=== PATIENT | male | born 1960 | race Caucasian/White ===

== ENCOUNTER 2025-11-02 18:06 | Inpatient (IN) | payer OTHER, MEDICARE, MEDICAID ==
[~2025-11-02] VITALS: Ht 167.6 cm; Wt 87.0 kg
--- NOTE | 2025-11-02 19:01 | Physician Documentation ---
History of Present Illness ~ Chief Complaint: Abdominal Pain Stated Complaint: GALLSTONES/ TRANSFER Time Seen by MD: 19:00 Source: EMS, EMS notes reviewed Mode of Arrival: EMS Exam Limitations: clinical condition HPI 65 year old male presents to the ED via EMS transferred from [facility]. At our facility patient is unable to provide history stating tat he is "kind of confused right now" and that he "was having abdominal pain this morning". Per records from [facility] where he was also noted to be a difficult historian/easily distracted/tangential he presented due to 3 days of progressively worsening abdominal pain that is sharp in nature and associated with some nausea and vomiting. Abdominal ultrasound in the ED indicated acute cholecystitis. Medication Reconciliation Allergies: Coded Allergies: codeine (Unverified Allergy, Unknown, 11/02/25) Scheduled Esomeprazole Magnesium (Nexium 24Hr), 1 CAP PO DAILY, (Reported) Gabapentin (Gabapentin), 9 CAP PO BID, (Reported) Scheduled PRN Ibuprofen (Advil), 800 MG PO PRN PRN for pain, (Reported) Miscellaneous Medications Tadalafil (Tadalafil), (Reported) Past Medical History Unable to obtain complete PMH: altered mental status Review of Systems ROS Unable to obtain secondary to patients current mental status. Physical Exam Vital Signs: RN Vital Signs have been reviewed: Yes, Temperature: 99.3, Source: Oral, Heart Rate: 104, Respiratory Rate: 17, BP: 144/81, Pulse Oximetry: 98, Weight: 87.450 Oxygen Flow Rate: 0 Pulse Oximetry Reflects: adequate oxygenation Physical Exam General: Patient is awake and oriented x1. Tangential. Head: Normocephalic and atraumatic. Eyes: Conjunctival normal. EOMI. PERRL. ENT: Mucous membranes moist. Neck: Supple, trachea is midline. Chest: Clear to auscultation bilaterally without rales, rhonchi, or wheezes. There is no accessory muscle use or retractions. Cardiac: RRR without murmurs, gallops, or rubs. Abd: RUQ tenderness to palpation. Otherwise: Soft, nondistended, with normoactive bowel sounds. No guarding, rebound, or rigidity. Extremities: Normal strength. Normal range of motion. No deformities or edema. Left BKA and right AKA. Back: No midline spinal or CVA tenderness. Skin: Warm and dry with no significant rash appreciated. Neuro: Cranial nerves II-XII grossly intact. Progress Progress Note 1960: Confirmed ultrasound showed enlarged common bile duct. Bilirubin is uptrending since arriving at this facility 1.2 --> 1.5. Arranging for transfer as we do not have ERCP capabilities. 0732: The case was discussed with the hospitalist at this time who was informed on the patient and kindly agreed to admission. Results/Orders Results/Orders Completed Orders - GLENN BRIGGS MD Cbc/Diff (11/02/25 18:20) BMP (11/02/25 18:20) Lipase (11/02/25 18:20) CMP (11/02/25 18:20) Ua W/Microscopic, Cult If Ind (11/02/25 18:57) Acetaminophen 1,000mg/100ml Iv (Ofirmev (11/02/25 23:25) Electrocardiogram (11/02/25 23:25) Ondansetron Inj. (Zofran 4mg/2ml Vial) (11/02/25 23:25) Piperacillin/Tazo 3.375gm/50ml (Zosyn 3. (11/03/25 00:05) Piperacillin/Tazo 3.375gm/50ml (Zosyn 3. (11/03/25 04:00) Ua W/Microscopic, Cult If Ind (11/03/25 07:48) Vital Signs 11/02/25 11/02/25 11/02/25 11/02/25 18:13 19:06 19:15 20:38 Temp 99.3 99.3 99.3 Pulse 104 96 104 Resp 17 27 24 B/P (MAP) 144/81 100/61 (74) 132/80 (97) Pulse Ox 98 92 92 O2 Flow Rate 0 0 0 11/02/25 11/03/25 11/03/25 11/03/25 23:19 03:25 06:03 07:44 Temp 103.4 101.0 98.7 Pulse 128 83 70 68 Resp 35 14 16 18 B/P (MAP) 94/64 (74) 98/63 (75) 101/74 (83) 101/62 (75) Pulse Ox 95 92 92 O2 Flow Rate 0 Laboratory Tests Test 11/02/25 18:57 11/02/25 19:33 11/03/25 07:48 Urine Specimen Description Cln catch midstream Voided Urine Color Yellow Yellow Urine Clarity Clear Clear Urine pH 5.5 5.5 Urine Specific [place] 1.025 1.025 Urine Protein Trace Trace Urine Glucose (UA) Negative Negative Urine Ketones Negative Negative Urine Occult Blood Negative Trace-intact Urine Nitrite Negative Negative Urine Bilirubin Negative Negative Urine Urobilinogen 0.2 0.2 Urine Leukocyte Esterase Negative Negative Urine RBC None seen 3-10 Urine WBC 0-4 0-4 Urine Squamous Epithelial Cells None seen Few Urine Bacteria 1+ 1+ Urine Culture Indicated Not ind Not ind Volume Urine Centrifuged 10 ml 10 ml Urine Comment White Blood Count 13.8 H Red Blood Count 4.28 L Hemoglobin 13.1 L Hematocrit 38.2 L Mean Corpuscular Volume 89.2 Mean Corpuscular Hemoglobin 30.6 Mean Corpuscular Hemoglobin Concent 34.3 Red Cell Distribution Width 14.2 Platelet Count 209 Mean Platelet Volume 8.1 Neutrophils (%) (Auto) 80.2 H Lymphocytes (%) (Auto) 5.0 L Monocytes (%) (Auto) 13.1 H Eosinophils (%) (Auto) 1.1 Basophils (%) (Auto) 0.6 Neutrophils # (Auto) 11.0 H Lymphocytes # (Auto) 0.7 L Monocytes # (Auto) 1.8 H Eosinophils # (Auto) 0.1 Basophils # (Auto) 0.1 CBC Comment Sodium Level 143 Potassium Level 4.1 Chloride Level 110 H Carbon Dioxide Level 24.7 Anion Gap 8 Blood Urea Nitrogen 24 H Creatinine 0.99 Estimated GFR/1.73 m2 75 BUN/Creatinine Ratio 24.2 H Glucose Level 107 H Calcium Level 8.5 Total Bilirubin 1.5 H Aspartate Amino Transf (AST/SGOT) 38 H Alanine Aminotransferase (ALT/SGPT) 38 Alkaline Phosphatase 72 Total Protein 7.3 Albumin 3.1 L Globulin 4.2 Albumin/Globulin Ratio 0.7 L Lipase 20 Chemistry Comments Urine Amorphous Urates 1+ EKG/XRAY/CT/US/VASC/MRI EKG : Intepreting Monitor?: No Additional Comment 0181: Sinus tachycardia rate of 123, normal axis, no ST changes. Medical Decision Making Additional information obtaine: other Findings Patient presents to the emergency room with cholecystitis. Antibiotics already initiated that has transfer. Dr. Camarena has spoken to surgeon who kindly agrees to admit despite enlarged common bile duct. Diff Dx GI Bleed:Consideration: Include: AE fistula, Angiodysplasia, Bleeding diathesis, Blood loss anemia, Carcinoma, Diverticulosis, Diverticulitis, Esophageal varicies, Esophagitis, Gastritis, Gastroenteritis, Inflammatory BD, Rosana-Dillon syndrome, Meckel's diverticulum, PUD, Other Diff Dx Pain:Considerations: Include: AAA, Angina/AK, Aortic dissection, Sergei endicitis, Bowel obstruction, Cholangitis, Cholecystitis, Cholelithasis, Constipation, Diverticular disease, Esophageal rupture, Esophagitis, Gastritis, Gastroenteritis, GI hemorrhage, Hepatitis, Hernia, Inflammatory BD, Ischemic bowel, Mass, Pancreatitis, Porphyria, PUD, Testicular torsion, Trauma, intraabdominal, Urinary obstruction, Urinary tract infection, Urolithiasis, Other Diff Dx N/V/D:Considerations: Include: Appendicitis, Bowel obstruction, Dehydration, DKA, Diarrhea - bacterial, Diarrhea - parasitic, Diarrhea - viral, Diverticulitis, Diverticulosis, Drug toxicity, Electrolyte imbalance, Food poisoning, Gastroenteritis, GE reflux, GI bleed, Hepatitis, Hernia, Hypovolemia, Hypotension, Inflammatory BD, Impaction, Malnutrition, Pancreatitis, PUD, Renal failure, Urinary obstruction, UTI, Urolithiasis, Other Diff Dx Rectal:Considerations: Include: Fissure, Fistula, Foreign body, Impaction, Perirectal abscess, Prostatitis, Rectal prolapse, Subcutaneous abscess, Thrombosed hemorrhoid, Ulcer, UTI, Other Departure Time of Disposition: 07:43 Disposition: 09 ADMITTED INPATIENT Admitted to Inpatient Unit: yes, to hospitalist Impression: Primary Impression: Acute cholecystitis Referrals: NO PRIMARY CARE PROVIDER (PCP) Signature Scribe Signature: Scribed for Glenn Briggs MD by Alanna Dominguez . 11/02/25 19:26 Scribed for Miguel Garcia MD by Rosy Dominguez . 11/03/25 07:43 (hospitalist note) Attestation: The note accurately reflects work and decisions made by me.Glenn Briggs MD 11/03/25 21:12 GLENN BRIGGS MD Nov 02, 2025 19:01 ALANNA PATEL Nov 02, 2025 19:24 ROSY JJ Nov 03, 2025 07:43
[2025-11-02 19:40] LABS: LEUKOCYTE ESTERASE ,URINE NEGATIVE (Neg); NITRITES, URINE NEGATIVE (Neg); OCCULT BLOOD,URINE NEGATIVE (Neg)
[2025-11-02 19:42] LABS: UA COLLECTION TYPE CLN CATCH MIDSTREAM
[2025-11-02 19:45] LABS: MEAN PLATELET VOLUME 8.1 FL (7.4-10.4); RED CELL DISTRIBUTION WIDTH 14.2 % (11.5-14.5)
[2025-11-02 19:54] LABS: SQUAMOUS EPITHELIAL CELL,UR NONE SEEN /LPF (FEW)
[2025-11-02 19:55] LABS: CREATININE 0.99 MG/DL (0.60-1.10); TOTAL CARBON DIOXIDE 24.7 MMOL/L (24-32); eCRCL 65 ML/MIN; eGFR 75 ML/MIN
[2025-11-02] MEDS ORDERED: piperacillin/tazo 4.5gm/100ml 100 ML IV SCH (23:30)
--- NOTE | 2025-11-02 23:32 | ELECTROCARDIOGRAPH REPORT ---
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 Isauro Jiménez Measurements Intervals [place] Rate: 123 P: 62 GA: 166 QRS: 46 QRSD: 96 T: 49 QT: 321 QTc: 460 Interpretive Statements Sinus tachycardia Probable LVH with secondary repol abnrm Electronically Signed On 11-04-2025 21:14:[address] Isauro Jiménez Please click the below link to view image of tracing.
[2025-11-02] MEDS: acetaminophen 1,000mg/100ml IV 100 ML IV ONE (23:58)
[2025-11-03] VITALS (41 sets, daily range): BP systolic 91–183; BP diastolic 46–91; PULSE 62–87; RESP 14–29; TEMP 97.6–98.6; O2SAT 92–98
[2025-11-03] MEDS: ondansetron/PF 4mg/2ml inj IV ONE (00:25)
[2025-11-03] MEDS: piperacillin/tazo 3.375gm/50ml 50 ML IV ONE (00:25)
[2025-11-03] MEDS: piperacillin/tazo 3.375gm/50ml 50 ML IV SCH (04:04)
--- NOTE | 2025-11-03 08:01 | HISTORY AND PHYSICAL ---
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 At our facility patient is unable to provide history stating tat he is "kind of confused right now" and that he "was having abdominal pain this morning". Per records from [facility] where he was also noted to be a difficult historian/easily distracted/tangential he presented due to 3 days of progressively worsening abdominal pain that is sharp in nature and associated with some nausea and vomiting. Abdominal ultrasound in the ED indicated acute cholecystitis. In emergency Department patient was evaluated by physician, and after consultation with the surgeon decision was made to admit patient for further evaluation and treatment including procedure cholecystectomy. Patient NPO on IV antibiotics. No additional complaint or concern. Allergies: Coded Allergies: codeine (Unverified Allergy, Unknown, 11/02/25) Active prescriptions Reconciled and reviewed Home Medications Pending Past Medical History Past Medical History As in HPI Past Surgical History Surgical History Comment As in HPI Past Social History Social History Comment Deny illicit drug abuse tobacco alcohol use live with the family good social support Health Maintenance Health Maintenance Noncontributory ROS ROS Constitutional : no fever , no chills, or weakness. No diaphoresis. Allergic/Immunologic, no lymphadenopathy, no hives, no skin eruptions. Eyes, no recent visual changes, no eye pain, no photophobia. Ears, nose, mouth, throat, no sore throat, no nosebleed, no ear pain. Cardiovascular, no palpitations, skipped beats, chest pain, no peripheral edema, Respiratory, no dyspnea, orthopnea, cough, hemoptysis, chest wall pain. Gastrointestinal, patient has abdominal pain, nausea, vomiting, constipation or diarrhea. : no dysuria, hematuria, pelvic pain, urethral d/c. Endocrine, no polyuria, polydipsia, recent unintentional weight gain or loss. Hematologic/Lymphatic, no petechiae, no enlarged lymph nodes, no bone pain. Integumentary, no rash, no skin lesions, Musculoskeletal, no muscle aches, or pain, no muscle cramps, no recent change in gait Neurological, no dizziness, no headache, no syncope, no paresthesia. Psychiatric, no delusions, visual hallucinations, or hearing hallucinations. ROS - in rest is as in HPI. Exam Vitals: Vital Signs Date Time Temp Pulse Resp B/P (MAP) Pulse Ox O2 Delivery O2 Flow Rate FiO2 11/03/25 07:44 68 18 101/62 (75) 11/03/25 06:03 98.7 92 11/03/25 03:25 0 Vital signs, stable ,afebrile. Pulse Oximetry reflects adequate oxygenation. BMI is 31, weight 87 kg General: well developed, well nourished. Awake , alert, and oriented x4, resting comfortably in the bed, in no acute distress . Skin: Warm, dry, no pallor, no rash or petechiae. HEENT: Atraumatic, normocephalic, EOMI, anicteric sclera B; pink conjunctiva; PERRLA, normal oropharynx, moist oral and nasal mucosa. Tympanic membrane , nose , throat clear. Neck: Trachea midline. Supple, full range of motion, no JVD, bruit , hepatojugular reflex , lymphadenopathy or masses, or other lesions Cardiac: Regular rhythm, regular rate no murmurs, rubs, or gallops. Normal S1 and S2, no S3 noticed. PMI is normal. Respiratory: Equal breath sounds bilaterally, no tachypnea; lungs clear to auscultation bilaterally, no wheezing ,rub or rales, or crackles. Chest wall is symmetric and without deformity. No signs of trauma. Chest wall is nontender. No signs of respiratory distress. Resonance is normal upon percussion bilaterally. Gastrointestinal: Abdomen symmetric, non-distended, soft, tender to palpation right upper quadrant, normal bowel sounds x4 quadrant, normoactive, no hepatosplenomegaly , no masses , no bruit, no flank pain bilaterally. No voluntary guarding, rebound, or rigidity. No tenderness to percussion. No pulsatile masses. Equal femoral pulses. Positive Saenz's sign, negative McBurney point tenderness. Back; no CVA tenderness bilaterally, no deformities. Neck and back are without deformity as well. No tenderness noted on palpation of the spinous processes. Spinous processes are midline. Cervical, thoracic, and lumbar paraspinal muscles are not tender and are without spasm. : normal external genitalia, without lesions, swelling, masses or tenderness. Musculoskeletal: Extremities, normal range of motion, non-tender, muscle strength 5/5 x 4. Negative Homans signs bilaterally on lower extremity. Distal pulses full symmetrical, no clubbing, cyanosis , edema. A right BKA and left AKA noticed. Neurological: Speech is clear, alert, and oriented x 4. No motor or sensory deficit, deep tendon reflexes normal, cerebellar intact. Cranial nerves II-XII intact. Psych: Alert and or appropriate, normal affect. Vascular: Good distal pulses, which are equal x4; capillary refill less than 2 seconds. Lymphatic, no lymphadenopathy. 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 IV analgesics Reconciled home medications DVT gastropathy prophylaxis addressed Sepsis Screening Reassessment Date: Nov 03, 2025 Date of Service: Nov 03, 2025 Billing Provider: CASSIE DARBY MD Common Visit Codes: 36088-TIWPUAW INP/OBS CARE (HIGH) Secondary Visit Codes: 67147-NUAPRQAD CARE PLAN 30 MINUTES CASSIE DARBY MD Nov 03, 2025 08:01
[2025-11-03] MEDS ORDERED: magnesium sulf-water 2g/50mL 50 ML IV PRN (08:05)
[2025-11-03] MEDS ORDERED: magnesium hydroxide 30ml (MOM) UD suspension PO PRN (08:05)
[2025-11-03] MEDS ORDERED: HYDROcodone/acetaminophen 5mg/325mg tablet PO PRN (08:05)
[2025-11-03] MEDS ORDERED: magnesium Cl slow-release 64mg tablet PO PRN (08:05)
[2025-11-03] MEDS ORDERED: potassium Cl 20 mEq SR tablet PO PRN ×2 (08:05)
[2025-11-03] MEDS ORDERED: ondansetron 4mg rapidly disintigrating tab PO PRN (08:05)
[2025-11-03] MEDS ORDERED: magnesium sulf-water 4G/100mL 100 ML IV PRN (08:05)
[2025-11-03] MEDS ORDERED: mag hydrox/Alum hydrox/simeth 30ml oral suspension PO PRN (08:05)
[2025-11-03] MEDS ORDERED: bisacodyl 10mg suppository rectal RC PRN (08:05)
[2025-11-03] MEDS ORDERED: potassium Cl 40MEQ/1/2NS 520ml 520 ML IV PRN (08:05)
[2025-11-03 08:14] LABS: LEUKOCYTE ESTERASE ,URINE NEGATIVE (Neg); NITRITES, URINE NEGATIVE (Neg); OCCULT BLOOD,URINE TRACE-INTACT (Neg)
[2025-11-03] MEDS ORDERED: ESOM20CA59 PO (08:20)
[2025-11-03] MEDS ORDERED: GABA-530 PO (08:20)
[2025-11-03] MEDS ORDERED: IBUP-24 PO (08:20)
[2025-11-03] MEDS ORDERED: [UNRECOGNIZED DRUG - CODE] (08:20)
[2025-11-03 08:28] LABS: UA COLLECTION TYPE VOIDED
[2025-11-03 08:29] LABS: AMORPHOUS URATES 1+; SQUAMOUS EPITHELIAL CELL,UR FEW /LPF (FEW)
[2025-11-03] MEDS: normal saline 1000ml 1,000 ML IV SCH (08:33)
[2025-11-03 08:58] LABS: PHOSPHORUS 5.6 MG/DL (2.3-4.5); PRO BRAIN NATRIURETIC PEPTIDE 6395.0 PG/ML (0-125)
--- NOTE | 2025-11-03 11:08 | PROGRESS NOTE ---
Progress Note ID Providers to CC ~ Progress Note Progress Note: PT SEEN AND EXAMINED-NEEDS SANDRA CASTRO-POSSIBLE OPEN-DISCUSSED PROCEDURE INCLUDING RISKS/BENEFITS/ALTERNATIVES SONIA COX MD Nov 03, 2025 11:08
[2025-11-03] MEDS ORDERED: BUPIVAcaine 2.5mg/ml inj 50ml vial (contains preservative) ONE (11:11)
[2025-11-03] MEDS ORDERED: desflurane 240ml liquid inh. IH ONE (11:15)
[2025-11-03] MEDS ORDERED: rocuronium 10mg/ml inj IV ONE (11:15)
[2025-11-03] MEDS ORDERED: fentaNYL/PF 50MCG/1 ML 2ML syringe ONE (11:20)
[2025-11-03] MEDS ORDERED: propofol inj 20 ML IV ONE (11:26)
[2025-11-03] MEDS ORDERED: dexamethasone sod phosphate 4mg/ml inj. ONE (11:28)
[2025-11-03] MEDS ORDERED: LIDOcaine 1%/PF 5ML 10 MG/ML VIAL ONE (11:28)
[2025-11-03] MEDS ORDERED: ePHEDrine 50MG/ML INJ. ONE (11:29)
[2025-11-03] MEDS ORDERED: ondansetron/PF 4mg/2ml inj ONE (11:29)
[2025-11-03] MEDS ORDERED: acetaminophen 1,000mg/100ml IV 100 ML IV ONE (11:35)
[2025-11-03] MEDS ORDERED: fentaNYL/PF 50MCG/1 ML 2ML syringe IV PRN (11:45)
[2025-11-03] MEDS ORDERED: hydrALAZINE 20mg/ml inj. IV PRN (11:45)
[2025-11-03] MEDS: ringers solution, lacted 1,000 ML IV SCH (11:45)
[2025-11-03] MEDS ORDERED: enalaprilat 1.25mg/ml 2ml vial IV PRN (11:45)
[2025-11-03] MEDS ORDERED: HYDROmorphone/PF 0.2 MG/ML SYRINGE IV PRN ×2 (11:45)
[2025-11-03] MEDS ORDERED: glycopyrrolate 0.2mg/ml inj ONE (11:54)
--- NOTE | 2025-11-03 13:29 | OPERATIVE REPORT ---
Operative Report Providers to CC ~ Date of Procedure: Nov 03, 2025 Pre-Operative Diagnosis: Cholecystitis Post-Operative Diagnosis SAME as PRE-Op Procedure Performed david villagran Surgeon: ed yepez Anesthesiologist: Sinan Pimentel Type of Anesthesia: General Findings: severe cholecystitis Estimated Blood Loss: 300 ml Specimen Removed: SONIA Spencer MD Nov 03, 2025 13:29
[2025-11-03] MEDS ORDERED: PCA WASTE DOCUMENTATION 1 MG ML MC SCH (13:30)
[2025-11-03] MEDS: fentaNYL/PF 50MCG/1 ML 2ML syringe IV PRN (13:31)
[2025-11-03] MEDS: HYDROmorphone inj. 0.5 MG/0.5 ML DISP.SYRIN IV ONE (13:40)
[2025-11-03] MEDS: HYDROmorphone inj. 0.5 MG/0.5 ML DISP.SYRIN IV PRN ×2 (13:56→13:58)
[2025-11-03] MEDS ORDERED: HYDROmorphone inj. 0.5 MG/0.5 ML DISP.SYRIN IV PRN (14:02)
[2025-11-03 14:03] LABS: MEAN PLATELET VOLUME 8.3 FL (7.4-10.4); RED CELL DISTRIBUTION WIDTH 14.7 % (11.5-14.5)
[2025-11-03] MEDS: ondansetron/PF 4mg/2ml inj IV PRN ×2 (14:16→20:54)
--- NOTE | 2025-11-03 15:15 | ELECTROCARDIOGRAPH REPORT ---
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 TONY Hays Measurements Intervals [place] Rate: 80 P: 40 [place]: 179 QRS: 20 QRSD: 103 T: 36 QT: 431 QTc: 498 Interpretive Statements Sinus rhythm Probable left ventricular hypertrophy Borderline prolonged QT interval Electronically Signed On 11-04-2025 13:17:[address] TONY Hays Please click the below link to view image of tracing.
[2025-11-03] MEDS ORDERED: HYDROmorph/NS 0.2 mg/ml PCA 100 ML IV SCH (15:25)
[2025-11-03] MEDS: nitroGLYCERIN-Tridil 50MG/D5W 250 ML IV SCH (16:07)
[2025-11-03] MEDS: HYDROmorph/NS 0.2 mg/ml PCA 100 ML IV SCH (16:42)
[2025-11-03] MEDS: acetaminophen 650mg rectal suppository RC PRN (16:43)
[2025-11-03] MEDS: aspirin 300mg supp.rect RC ONE (16:46)
[2025-11-03] MEDS: K and/or MAG REPLACEMENT MC SCH (20:00)
[2025-11-03 20:14] LABS: APTT 32 SECONDS (22-32); INR 1.1 INR
[2025-11-03] MEDS: docusate sod 100mg capsule PO SCH (20:50)
[2025-11-03] MEDS: HYDROcodone/acetaminophen 10/325mg tab PO PRN (20:54)
[2025-11-03] MEDS: piperacillin/tazo 4.5gm/100ml 100 ML IV SCH (21:21)
[2025-11-04] VITALS (13 sets, daily range): BP systolic 111–140; BP diastolic 72–92; PULSE 66–91; RESP 10–28; TEMP 96.8–98.2; O2SAT 88–97
--- NOTE | 2025-11-04 01:31 | OPERATIVE REPORT ---
DATE OF SURGERY: 11/03/2025 DICTATING PHYSICIAN: Derrick Dc MD PREOPERATIVE DIAGNOSES: Cholelithiasis, cholecystitis. POSTOPERATIVE DIAGNOSES: Cholelithiasis, cholecystitis. PROCEDURE PERFORMED: Robotic cholecystectomy. SURGEON: Derrick Dc MD. DYE BOX OPERATOR: None. ANESTHESIA: General/Dr. Pimentel. DRAINS: Chris drain x2. INDICATIONS FOR OPERATION: A 65-year-old male transferred from [facility] after being hospitalized for 2-3 days with acute cholecystitis, he is taken to surgery for robotic cholecystectomy. INTRAOPERATIVE FINDINGS: The patient had severe cholecystitis with very inflamed gallbladder. A large amount of bleeding was present. DESCRIPTION OF PROCEDURE: The patient was placed supine on the operating table. After induction of general anesthesia and placement of endotracheal tube, the abdomen was prepped and draped. A subxiphoid incision was then made and an Dede port placed using open technique and pneumoperitoneum was begun by insufflation of CO2. Additional ports were placed in the lower abdomen. Robot was then brought to the field. Camera port was then docked. Camera placed, camera targeted. Additional ports were then docked and instruments placed. Abdomen was then explored. The gallbladder was found to be quite inflamed. The gallbladder was decompressed, fundus was grasped and retracted cephalad. Cystic duct was identified, isolated, clipped and divided as was the cystic artery. The gallbladder was mobilized off the gallbladder fossa resulting in a large amount of bleeding. Hemostasis was found to be adequate. Robotic instruments were removed. Gallbladder was placed in Endobag using laparoscope. Abdomen was irrigated with large amount of antibiotic-containing solution. The gallbladder bed was cauterized, drain placed. Pneumoperitoneum was evacuated. Wounds were closed with clips after the gallbladder was removed. Dressing applied. The patient was transferred to recovery room in stable condition. Derrick Dc MD TID: [id number] RECEIPT: [id number] /
[2025-11-04] MEDS: diazepam inj 5 MG/ML inj. IV ONE (05:11)
--- NOTE | 2025-11-04 05:36 | ELECTROCARDIOGRAPH REPORT ---
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 TONY Hays Measurements Intervals [place] Rate: 78 P: 50 [place]: 177 QRS: 32 QRSD: 103 T: 9 QT: 430 QTc: 490 Interpretive Statements Sinus rhythm Minimal ST depression, diffuse leads Borderline prolonged QT interval Electronically Signed On 11-04-2025 13:17:[address] TONY Hays Please click the below link to view image of tracing.
[2025-11-04 08:13] LABS: MEAN PLATELET VOLUME 8.8 FL (7.4-10.4); RED CELL DISTRIBUTION WIDTH 14.5 % (11.5-14.5)
[2025-11-04 08:26] LABS: CHOL/HDL RATIO 4.8 (0.00-4.99); CREATININE 1.14 MG/DL (0.60-1.10); LDL CHOLESTEROL 43 MG/DL (50-100); TOTAL CARBON DIOXIDE 21.0 MMOL/L (24-32); eCRCL 57 ML/MIN; eGFR 64 ML/MIN
[2025-11-04 11:46] LABS: PRO BRAIN NATRIURETIC PEPTIDE 1889 PG/ML (0-125)
--- NOTE | 2025-11-04 14:32 | PROGRESS NOTE ---
Progress Note ID Providers to CC ~ Progress Note Progress Note: pain improving/vss/abd-mild distention/labs noted a/p 1. s/p sparkle-slow progress/cont supportive care SONIA COX MD Nov 04, 2025 14:32
--- NOTE | 2025-11-04 17:37 | CARDIOLOGY REPORT ---
APPROVED REPORT EXAM: Comprehensive 2D, Doppler, and color-flow Echocardiogram. Patient Location: RECOVERY Blood Pressure: 133 / 87 mmHg Heart Rate: 78 bpm Rhythm: SINUS Indications CHEST PAIN S/P CHOLECYCTECTOMY TROPONIN 5000 - EVALUATE FOR STEMI PT UNABLE TO PROVIDE ANY CARDIAC HISTORY Supervisor Fur Floor Worker: Elaine CHU MD (SAW >5 YRS AGO - UNSURE WHY) Previous echo: NONE AVAILABLE 2D Dimensions RVDd 4.0 cm LA Diam 5.1 cm LVOT Diameter 2.37 (1.8-2.4cm) CO 4.8 L/min M-Mode Dimensions Left Atrium(MM) 5.83 (2.5-4.0cm) IVSd 1.75 (0.7-1.1cm) LVDd 4.51 (4.0-5.6cm) Aortic Root 4.00 (2.2-3.7cm) PWd 1.48 (0.7-1.1cm) Aortic Cusp Exc 2.65 (1.5-2.0cm) IVSs 2.22 cm LVDs 2.84 (2.0-3.8cm) FS (%) 37 % PWs 2.02 cm ESV(Teich) 30.6 ml LVEF(%) 67 (>50%) Aortic Valve AoV Peak Ronak. 233.0 cm/s AoV VTI 48.1 cm AO Peak GR. 18.6 mmHg AO Mean GR. 11 mmHg LVOT VTI 49.00 cm LVOT Peak Ronak. 195.0 cm/s YING (VMAX) 3.43 cm2 YING (VTI) 3.46 cm2 Mitral Valve MV E Velocity 105.5 cm/s MV Peak Gr. 5 mmHg MV DECEL TIME 160 ms MV A Velocity 100.9 cm/s MV PHT 48 ms E/A Ratio 1.0 MVA (PHT) 4.58 cm2 MV VMax 107.0 cm/s LEFT VENTRICLE Normal LV size and function. Moderate concentric hypertrophy with prominent septal knuckle without significant LV gradient at rest. Thickest LV segment is measured at septal knuckle: 2.3 cm. Myocardial appearance of hyper - echoic speckle / mottled tissue with visible "spine" throughout IV septum. Best visualized in loop: 27-28. LVEF is 70%. RIGHT VENTRICLE RV is modertely increased in size with adequate systolic function. ATRIA Left atrium is severely dilated. AORTIC VALVE Trileaflet AV appears mildly sclerotic without stenosis. Mild insufficiency by color flow Doppler. MITRAL VALVE Mild MV annular calcification without stenosis. Mild regurgitation by color and spectral flow Doppler. TRICUSPID VALVE TV appears structurally normal with trivial regurgitation by color and spectral flow Doppler. PULMONIC VALVE Normal PV without stenosis, physiologic insufficiency by color and spectral flow Doppler. GREAT VESSELS Aortic root is mildly dilated. Normal appearing arch with normal flow velocities. Pulmonary artery is dilated at 2.75cm proximal to bifurcation. Right branch is dilated at 2.64cm. Left branch visualized and measured in arch window. LPA: 4.2cm. PERICARDIUM Normal pericardium. No effusion. Other Information Study Quality: Technically Difficultas pt is writhing in pain throughout exam. Pt is newly post-op with abdominal dressings - limited subcostal images. See attached EKG. Conclusion Normal LV size and function. Moderate concentric hypertrophy with prominent septal knuckle without significant LV gradient at rest. Thickest LV segment is measured at septal knuckle: 2.3 cm. Myocardial appearance of hyper - echoic speckle / mottled tissue with visible "spine" throughout IV septum. LVEF is 70%. RV is modertely increased in size with adequate systolic function. Left atrium is severely dilated. Trileaflet AV appears mildly sclerotic without stenosis. Mild insufficiency by color flow Doppler. Mild MV annular calcification without stenosis. Mild regurgitation by color and spectral flow Doppler. TV appears structurally normal with trivial regurgitation by color and spectral flow Doppler. Aortic root is mildly dilated. Normal appearing arch with normal flow velocities. Pulmonary artery is dilated at 2.75cm proximal to bifurcation. Right branch is dilated at 2.64cm. Left branch visualized and measured in arch window. LPA: 4.2cm. Normal pericardium. No effusion.
--- NOTE | 2025-11-04 19:32 | PROGRESS NOTE ---
Daily Progress Note Providers to CC ~ feels better today pain well controlled, no chest pain, no shortness of breath Central Line/PICC still needed: No Sanders-Non Protocol Sanders Indications Met/Not Met: F/C Indications Not Met Antibiotic Timeout Antibiotic Ordered?: Yes MRSA Education MRSA Education Provided to pt: Yes Subjective As above Objective Vital Signs Date Time Temp Pulse Resp B/P (MAP) Pulse Ox O2 Delivery O2 Flow Rate FiO2 11/04/25 15:00 96.9 88 12 140/89 (106) 93 11/04/25 11:00 Room Air 11/03/25 18:40 0.0 Vital signs, stable ,afebrile. Pulse Oximetry reflects adequate oxygenation. General: well developed, well nourished. Awake , alert, and oriented x4, resting comfortably in the bed, in no acute distress . Skin: Warm, dry, no pallor, no rash or petechiae. HEENT: Atraumatic, normocephalic, EOMI, anicteric sclera B; pink conjunctiva; PERRLA, normal oropharynx, moist oral and nasal mucosa. Tympanic membrane , nose , throat clear. Neck: Trachea midline. Supple, full range of motion, no JVD, bruit , hepatojugular reflex , lymphadenopathy or masses, or other lesions Cardiac: Regular rhythm, regular rate no murmurs, rubs, or gallops. Normal S1 and S2, no S3 noticed. PMI is normal. Respiratory: Equal breath sounds bilaterally, no tachypnea; lungs clear to auscultation bilaterally, no wheezing ,rub or rales, or crackles. Chest wall is symmetric and without deformity. No signs of trauma. Chest wall is nontender. No signs of respiratory distress. Resonance is normal upon percussion bilaterally. Gastrointestinal: Abdomen symmetric, non-distended, soft, non-tender, clean dry intact, normal bowel sounds x4 quadrant, normoactive, no hepatosplenomegaly , no masses , no bruit, no flank pain bilaterally. No voluntary guarding, rebound, or rigidity. No tenderness to percussion. No pulsatile masses. Equal femoral pulses. No Saenz's sign or McBurney point tenderness. Back; no CVA tenderness bilaterally, no deformities. Neck and back are without deformity as well. No tenderness noted on palpation of the spinous processes. Spinous processes are midline. Cervical, thoracic, and lumbar paraspinal muscles are not tender and are without spasm. : normal external genitalia, without lesions, swelling, masses or tenderness. Musculoskeletal: Extremities, normal range of motion, non-tender, muscle strength 5/5 x 4. Negative Homans signs bilaterally on lower extremity. Distal pulses full symmetrical, no clubbing, cyanosis , edema. Neurological: Speech is clear, alert, and oriented x 4. No motor or sensory deficit, deep tendon reflexes normal, cerebellar intact. Cranial nerves II-XII intact. Psych: Alert and or appropriate, normal affect. Vascular: Good distal pulses, which are equal x4; capillary refill less than 2 seconds. Lymphatic, no lymphadenopathy. 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 Dr. Cm Willingham is on the case Patient is on Aspirin, nitroglycerin statin Additional lab work pending PT evaluation and treatment IV Protonix Pain control p.o. IV analgesics Reconciled home medications DVT gastropathy prophylaxis addressed Date of Service: Nov 04, 2025 Billing Provider: CASSIE DARBY MD Common Visit Codes: [id number] INP/OBS CARE(HIGH) CASSIE DARBY MD Nov 04, 2025 19:32
[2025-11-05] VITALS (8 sets, daily range): BP systolic 112–145; BP diastolic 51–87; PULSE 73–88; RESP 12–28; TEMP 97–98.9; O2SAT 94–98
[2025-11-05] MEDS: diazepam inj 5 MG/ML inj. IV ONE (03:00)
--- NOTE | 2025-11-05 03:35 | CONSULTATION ---
DATE OF CONSULTATION: 11/03/2025 DICTATING PHYSICIAN: Derrick Dc MD REASON FOR CONSULTATION: abdominal pain. HISTORY OF PRESENT ILLNESS: This is a 65-year-old male to an outside hospital with abdominal discomfort and was subsequently admitted for cholecystitis at [facility]. He was there for 2-3 days. Finally transferred earlier this morning to [facility]. He states his pain is much improved at the present time. Initially, it had involved the right upper quadrant. PAST MEDICAL HISTORY: Significant for a previous CVA, hypertension, anemia, chronic pain. PAST SURGICAL HISTORY: Left lower extremity BKA and right lower extremity AKA. HOME MEDICATIONS: See chart. ALLERGIES: CODEINE. SOCIAL HISTORY: No tobacco or alcohol use. Lives with his . REVIEW OF SYSTEMS: See H and P. PHYSICAL EXAMINATION: GENERAL: The patient is a well-nourished male, in no distress. VITAL SIGNS: Unremarkable. HEART: Regular rate and rhythm. LUNGS: Clear to auscultation. ABDOMEN: Mild right upper quadrant tenderness. EXTREMITIES: Status post BKA and AKA as outlined above. LABORATORY DATA: Included WBC 13.8, hematocrit 38, platelet count 209, bilirubin is 1.9. AST and ALT 38 and 38 respectively. CO2 is 24. IMAGING STUDIES: CAT scan of abdomen and pelvis revealed cholelithiasis. IMPRESSION: * Cholelithiasis, cholecystitis. * Hypertension. * Anemia. * History of vascular disease. * Status post amputations. RECOMMENDATIONS: Robotic cholecystectomy, possible open. Derrick Dc MD TID: [id number] RECEIPT: [id number] /[facility]
[2025-11-05 05:03] LABS: MEAN PLATELET VOLUME 8.1 FL (7.4-10.4); RED CELL DISTRIBUTION WIDTH 14.6 % (11.5-14.5)
[2025-11-05 05:23] LABS: CREATININE 0.91 MG/DL (0.60-1.10); TOTAL CARBON DIOXIDE 25.3 MMOL/L (24-32); eCRCL 71 ML/MIN; eGFR 83 ML/MIN
[2025-11-05] MEDS: aspirin 81mg, enteric-coated 1 TAB TABLET.DR PO SCH (10:15)
--- NOTE | 2025-11-05 10:44 | RADIOLOGY REPORT ---
CLINICAL HISTORY: sob TECHNIQUE: Single view of the chest was obtained. COMPARISON: None FINDINGS: The heart size and pulmonary vasculature are normal. There are low lung volumes. There are new bibasilar opacities. IMPRESSION: New bibasilar opacities, favor atelectasis and small left pleural effusion.
[2025-11-05] MEDS ORDERED: TADA5TAB2 PO (13:01)
[2025-11-05] MEDS ORDERED: GABA-530 PO (13:04)
[2025-11-05] MEDS: PCA WASTE DOCUMENTATION 1 MG ML MC SCH (13:23)
[2025-11-05] MEDS: metoclopramide 5 mg/ml inj IV SCH (15:46)
--- NOTE | 2025-11-05 18:59 | PROGRESS NOTE ---
Daily Progress Note Providers to CC ~ no chest pain, tolerating medication fine, Central Line/PICC still needed: No Sanders-Non Protocol Sanders Indications Met/Not Met: F/C Indications Not Met Antibiotic Timeout Antibiotic Ordered?: Yes MRSA Education MRSA Education Provided to pt: Yes Subjective As above Objective Vital Signs Date Time Temp Pulse Resp B/P (MAP) Pulse Ox O2 Delivery O2 Flow Rate FiO2 11/05/25 15:00 97.7 88 13 143/81 (101) 95 Room Air 11/05/25 08:00 0.0 Vital signs, stable ,afebrile. Pulse Oximetry reflects adequate oxygenation. BMI is General: well developed, well nourished. Awake , alert, and oriented x4, resting comfortably in the bed, in no acute distress . Skin: Warm, dry, no pallor, no rash or petechiae. HEENT: Atraumatic, normocephalic, EOMI, anicteric sclera B; pink conjunctiva; PERRLA, normal oropharynx, moist oral and nasal mucosa. Tympanic membrane , nose , throat clear. Neck: Trachea midline. Supple, full range of motion, no JVD, bruit , hepatojugular reflex , lymphadenopathy or masses, or other lesions Cardiac: Regular rhythm, regular rate no murmurs, rubs, or gallops. Normal S1 and S2, no S3 noticed. PMI is normal. Respiratory: Equal breath sounds bilaterally, no tachypnea; lungs clear to auscultation bilaterally, no wheezing ,rub or rales, or crackles. Chest wall is symmetric and without deformity. No signs of trauma. Chest wall is nontender. No signs of respiratory distress. Resonance is normal upon percussion bilaterally. Gastrointestinal: Abdomen symmetric, non-distended, soft, non-tender, normal bowel sounds x4 quadrant, normoactive, no hepatosplenomegaly , no masses , no bruit, no flank pain bilaterally. No voluntary guarding, rebound, or rigidity. No tenderness to percussion. No pulsatile masses. Equal femoral pulses. No Saenz's sign or McBurney point tenderness. Back; no CVA tenderness bilaterally, no deformities. Neck and back are without deformity as well. No tenderness noted on palpation of the spinous processes. Spinous processes are midline. Cervical, thoracic, and lumbar paraspinal muscles are not tender and are without spasm. : normal external genitalia, without lesions, swelling, masses or tenderness. Musculoskeletal: Extremities, normal range of motion, non-tender, muscle strength 5/5 x 4. Negative Homans signs bilaterally on lower extremity. Distal pulses full symmetrical, no clubbing, cyanosis , edema. Neurological: Speech is clear, alert, and oriented x 4. No motor or sensory deficit, deep tendon reflexes normal, cerebellar intact. Cranial nerves II-XII intact. Psych: Alert and or appropriate, normal affect. Vascular: Good distal pulses, which are equal x4; capillary refill less than 2 seconds. Lymphatic, no lymphadenopathy. 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 Dr. Cm Willingham is on the case Patient is on Aspirin, statin Additional lab work pending PT evaluation and treatment IV Protonix Pain control p.o. IV analgesics Reconciled home medications DVT gastropathy prophylaxis addressed Sepsis Screening Reassessment Date: Nov 05, 2025 Date of Service: Nov 05, 2025 Billing Provider: CASSIE DARBY MD Common Visit Codes: [id number] INP/OBS CARE(HIGH) CASSIE DARBY MD Nov 05, 2025 18:59
--- NOTE | 2025-11-05 20:25 | ELECTROCARDIOGRAPH REPORT ---
[facility] Test Date: 2025-11-05 Test Time: 20:24:21 Pat Name: DONNY BRIZUELA Department: [facility] Patient ID: [id number] Room: [place] [address] [address] Gender: M [employer] Supervisor: : 1960 Requested By: ELBERT SCHNEIDER Order Number: [id number] Reading MD: Dr. TONY Hays Measurements Intervals Mar Lin Rate: 78 P: 45 WI: 183 QRS: 22 QRSD: 100 T: 31 QT: 406 QTc: 463 Interpretive Statements Sinus rhythm Electronically Signed On 11-06-2025 12:19:[address] TONY Hays Please click the below link to view image of tracing.
--- NOTE | 2025-11-05 20:40 | PROGRESS NOTE ---
Progress Note ID Providers to CC ~ Progress Note Progress Note: doing well/home 1-2 days SONIA COX MD Nov 05, 2025 20:40
[2025-11-05] MEDS: magnesium hydroxide 30ml (MOM) UD suspension PO ONE (22:58)
[2025-11-06 02:00] VITALS: BP 124/71; PULSE 73; RESP 20; TEMP 97.8; O2SAT 98
[2025-11-06 06:00] VITALS: BP 119/60; PULSE 76; RESP 22; TEMP 97.1; O2SAT 96
[2025-11-06 07:29] LABS: MEAN PLATELET VOLUME 7.9 FL (7.4-10.4); RED CELL DISTRIBUTION WIDTH 14.1 % (11.5-14.5)
[2025-11-06 07:56] LABS: CREATININE 0.77 MG/DL (0.60-1.10); TOTAL CARBON DIOXIDE 27.6 MMOL/L (24-32); eCRCL 84 ML/MIN; eGFR > 90 ML/MIN
[2025-11-06 08:00] VITALS: RESP 15; O2SAT 95
[2025-11-06 11:00] VITALS: BP 127/86; PULSE 86; RESP 26; TEMP 98.5; O2SAT 93
--- NOTE | 2025-11-06 11:54 | RADIOLOGY REPORT ---
NUCLEAR MEDICINE VENTILATION/PERFUSION LUNG SCAN. INDICATION: elevated d-dimer COMPARISON: None TECHNIQUE: Following intravenous demonstration of 5.7 millicuries of technetium 99m MAA, and inhalation of 47 mCi of Tc 99m DTPA scintigrams were obtained in multiple projections of the lungs. FINDINGS: There is normal uptake of radionuclide on both the ventilation and perfusion portions of the examination. No mismatched perfusion defects are demonstrated. Uptake is normally homogeneous. IMPRESSION: Low probability for PE.
--- NOTE | 2025-11-06 13:32 | PROGRESS NOTE ---
Progress Note ID Providers to CC ~ Progress Note Progress Note: doing well/no surgical issues-call if needed SONIA COX MD Nov 06, 2025 13:32
[2025-11-06 15:00] VITALS: BP 112/70; PULSE 73; RESP 21; TEMP 97.9; O2SAT 97
--- NOTE | 2025-11-06 15:07 | CONSULTATION REPORT ---
History of Present Illness Providers to CC CC: PATRICIA PABON MD ~ Reason for Admit\\Admit Dx: Cardiology consultation History of Present Illness Patient presented on November 02 secondary to worsening abdominal pain. Some nausea and vomiting. Had an abdominal ultrasound that indicated acute cholecystitis. Was taken to surgery on November 03, 2025. Underwent robotic assisted cholecystectomy secondary to severe cholecystitis with Dr. ward. Postoperatively he experienced chest pain troponin was drawn that was found to be elevated. Cardiology consultation was requested. Patient was seen by Dr. Maris Pabon in the recovery unit. Multiple EKGs were performed. There was no acute ST changes. An echocardiogram was obtained that showed a overall preserved LVEF with no wall motion abnormalities. There was an incidental finding of a prominent septal knuckle with thickest measurement being 2.3 cm and a speckled appearance throughout the septum. Patient denies any chest pain or pressure currently. No shortness a breath. No dizziness, lightheadedness or syncope. His only complaint is pain at his WILLIE site. Allergies: Coded Allergies: codeine (Unverified Allergy, Unknown, 11/02/25) Home Medications Home Medications Active Reported Gabapentin 100 Mg Capsule 300 Mg PO Q8H 30 Days Cialis* (Tadalafil*) 5 Mg Tablet 2.5 Mg PO DAILY Nexium 24Hr (Esomeprazole Magnesium) 20 Mg Capsule.dr 1 Cap PO DAILY 30 Days Advil (Ibuprofen) 200 Mg Tablet 800 Mg PO PRN PRN Past Medical History Medical History Comment Hypertension Chronic pain syndrome CVA in 2013 Frostbite in 1995 leading to bilateral amputations Past Surgical History Surgical History Comment Bilateral amputations lower extremities secondary to frostbite Cholecystectomy this admission Appendectomy Past Family History Family History Comment Denies past family history of cardiac disease, heart failure or sudden cardiac Past Social History Social History Comment Denies tobacco or recreational drug use. Lives in [place], [place] Physical Exam Last Vital Signs Recorded: RN Vital Signs have been reviewed: Yes, Temperature: 98.5, Source: Oral, Heart Rate: 86, Respiratory Rate: 26, BP: 127/86, Pulse Oximetry: 93, Weight: 87.000 Physical Exam General: Awake, alert, oriented. No apparent distress Neck: Supple. Normal range of motion. No JVD Respiratory: Lungs are clear to auscultation bilaterally. No respiratory distress. Chest: Normal shape and size. No accessory muscle use. Cardiovascular: Regular rate and rhythm. S1-S2. LEATHA II/ RUSB Gastrointestinal: WILLIE drain right abdomen Extremities: No lower extremity edema, cyanosis or clubbing. Neurologic: Alert and oriented x4. Nonfocal Psychiatric: Normal mood and affect. Skin: Normal color. Warm and dry. Review of Systems ROS Review of systems negative except documented in HPI. Unable to obtain complete ROS: altered mental status Results EKG EKG EKG shows sinus rhythm rate of 78. There are no acute ST changes. Echocardiogram Echocardiogram Conclusion Normal LV size and function. Moderate concentric hypertrophy with prominent septal knuckle without significant LV gradient at rest. Thickest LV segment is measured at septal knuckle: 2.3 cm. Myocardial appearance of hyper - echoic speckle / mottled tissue with visible "spine" throughout IV septum. LVEF is 70%. RV is modertely increased in size with adequate systolic function. Left atrium is severely dilated. Trileaflet AV appears mildly sclerotic without stenosis. Mild insufficiency by color flow Doppler. Mild MV annular calcification without stenosis. Mild regurgitation by color and spectral flow Doppler. TV appears structurally normal with trivial regurgitation by color and spectral flow Doppler. Aortic root is mildly dilated. Normal appearing arch with normal flow velocities. Pulmonary artery is dilated at 2.75cm proximal to bifurcation. Right branch is dilated at 2.64cm. Left branch visualized and measured in arch window. LPA: 4.2cm. Normal pericardium. No effusion. Dictated by:MK BAI MD Dictation date and time:11/04/25 1736 Diagram Lab Result Diagram: 11/06/25 0652 11/06/25 0652 Assessment/Plan Additional Plan Patient presented secondary abdominal pain and ultimately underwent cholecystectomy secondary to acute cholecystitis. Postoperatively developing chest pain and cardiology consultation was requested. NSTEMI Suspect MS type 2 after recent surgery. EKGs normal. Echocardiogram with preserved EF with below mentioned cardiomyopathy --recommend continued risk factor modification. Low-fat, low-cholesterol diet. Maintaining ideal body weight. Aspirin, statin. --start metop. Cardiomyopathy Suspect infiltrative cardiomyopathy such as amyloid versus hypertrophic cardiomyopathy. --he will need outpatient follow up for further differentiation. This was explained to him in detail. --recommend avoiding dehydration. He was encouraged to stay well hydrated. Avoid diuretics. Case discussed with dr. Laurie Pabon. In agreement with above. Supervising MD Supervising Physician: MALATHI Baca NP Nov 06, 2025 15:07
[2025-11-06] MEDS ORDERED: ESOM20CA59 PO (16:10)
[2025-11-06] MEDS ORDERED: METO-539 PO (16:10)
[2025-11-06] MEDS ORDERED: ASPI81TA52 PO (16:10)
[2025-11-06] MEDS ORDERED: ATOR20TA66 PO (16:10)
--- NOTE | 2025-11-06 18:32 | DISCHARGE SUMMARY ---
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 Admission Diagnosis: Cholecystitis Admission Diagnosis Comment: Acute cholecystitis Post lap sparkle on this admission sepsis metabolic encephalopathy Tachyarrhythmia Non ST-elevation NE type 2 Hypovolemia Anemia hemoglobin 13.1 Hypoalbuminemia Chronic pain syndrome History of hypertension 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 Hospital Course DATE OF ADMISSION: November 03, 2025 DATE OF DISCHARGE: November 06, 2025 Discharge Diagnosis\\Comment: Acute cholecystitis Post lap sparkle on this admission sepsis metabolic encephalopathy Tachyarrhythmia Non ST-elevation NE type 2 Hypovolemia Anemia hemoglobin 13.1 Hypoalbuminemia Chronic pain syndrome History of hypertension 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 At our facility patient is unable to provide history stating tat he is "kind of confused right now" and that he "was having abdominal pain this morning". Per records from [facility] where he was also noted to be a difficult historian/easily distracted/tangential he presented due to 3 days of progressively worsening abdominal pain that is sharp in nature and associated with some nausea and vomiting. Abdominal ultrasound in the ED indicated acute cholecystitis. In emergency Department patient was evaluated by physician, and after consultation with the surgeon decision was made to admit patient for further evaluation and treatment including procedure cholecystectomy. Patient NPO on IV antibiotics. No additional complaint or concern. She patient was extensively evaluated treated, today he was cleared by surgeon for discharge, medication reconciled, follow-up PCP surgery in three days, today on physical exam, physical exam Vital signs, stable ,afebrile. Pulse Oximetry reflects adequate oxygenation. General: well developed, well nourished. Awake , alert, and oriented x4, resting comfortably in the bed, in no acute distress . Skin: Warm, dry, no pallor, no rash or petechiae. HEENT: Atraumatic, normocephalic, EOMI, anicteric sclera B; pink conjunctiva; PERRLA, normal oropharynx, moist oral and nasal mucosa. Tympanic membrane , nose , throat clear. Neck: Trachea midline. Supple, full range of motion, no JVD, bruit , hepatojugular reflex , lymphadenopathy or masses, or other lesions Cardiac: Regular rhythm, regular rate no murmurs, rubs, or gallops. Normal S1 and S2, no S3 noticed. PMI is normal. Respiratory: Equal breath sounds bilaterally, no tachypnea; lungs clear to auscultation bilaterally, no wheezing ,rub or rales, or crackles. Chest wall is symmetric and without deformity. No signs of trauma. Chest wall is nontender. No signs of respiratory distress. Resonance is normal upon percussion bilaterally. Gastrointestinal: Abdomen symmetric, non-distended, soft, non-tender, normal bowel sounds x4 quadrant, normoactive, no hepatosplenomegaly , no masses , no bruit, no flank pain bilaterally. No voluntary guarding, rebound, or rigidity. No tenderness to percussion. No pulsatile masses. Equal femoral pulses. No Saenz's sign or McBurney point tenderness. Back; no CVA tenderness bilaterally, no deformities. Neck and back are without deformity as well. No tenderness noted on palpation of the spinous processes. Spinous processes are midline. Cervical, thoracic, and lumbar paraspinal muscles are not tender and are without spasm. : normal external genitalia, without lesions, swelling, masses or tenderness. Musculoskeletal: Extremities, normal range of motion, non-tender, muscle strength 5/5 x 4. Negative Homans signs bilaterally on lower extremity. Distal pulses full symmetrical, no clubbing, cyanosis , edema. Neurological: Speech is clear, alert, and oriented x 4. No motor or sensory deficit, deep tendon reflexes normal, cerebellar intact. Cranial nerves II-XII intact. Psych: Alert and or appropriate, normal affect. Vascular: Good distal pulses, which are equal x4; capillary refill less than 2 seconds. Lymphatic, no lymphadenopathy. *Problems/Diagnosis: (1) Acute cholecystitis Status: Acute Total Time Spent on D/C: > 30 Minutes Date of Service: Nov 06, 2025 Billing Provider: CASSIE DARBY MD Common Visit Codes: 11779-CNX/OBS DISCH DAY >30min CASSIE DARBY MD Nov 06, 2025 18:32
[2025-11-07] MEDS ORDERED: metoprolol succinate 25mg (24-HOUR) SR. Tablet PO SCH (08:00)
== END 2025-11-06 21:00 | disposition home or self-care (01) | DRG 853 ==
LOC: ER 18:06 → ED HOLD 11-03 08:10 → PCU 3S 11-03 19:15
PROVIDERS: ADMIT Family Medicine; ATTEND Family Medicine
PROC: 8E0W4CZ Robotic Assisted Procedure of Trunk Region, Percutaneous Endoscopic Approach (ICD-10-PCS; 2025-11-03)
PROC: 0FT44ZZ Resection of Gallbladder, Percutaneous Endoscopic Approach (ICD-10-PCS; principal; 2025-11-03 11:16)
PROC: CB1YYZZ Planar Nuclear Medicine Imaging of Respiratory System using Other Radionuclide (ICD-10-PCS; 2025-11-06)
DX: A41.9 Sepsis, unspecified organism (principal); G93.41 Metabolic encephalopathy; I21.A1 Myocardial infarction type 2; I42.9 Cardiomyopathy, unspecified; Z89.612 Acquired absence of left leg above knee; E88.09 Other disorders of plasma-protein metabolism, not elsewhere classified; K80.00 Calculus of gallbladder with acute cholecystitis without obstruction; I10 Essential (primary) hypertension; D64.9 Anemia, unspecified; E86.1 Hypovolemia; G89.4 Chronic pain syndrome; Z88.5 Allergy status to narcotic agent; Z86.73 Personal history of transient ischemic attack (TIA), and cerebral infarction without residual deficits; Z89.511 Acquired absence of right leg below knee
CPT/HCPCS: 36415; 71045; 78582; 80053; 80061; 81001; 82550; 83036; 83605; 83690; 83735; 83880; 83930; 84100; 84484; 85025; 85379; 85610; 85730; 87040; 87081; 93005; 93306; 96374; 97161; 97530; 99285; A4215; A4615; A4618; A6196; A6212; A6258; A6449; A6590; A7000; A9539; A9540; G0378; J0131; J1100; J1171; J2405; J2543; J2704; J2710; J2765; J3010; J3360; J3490; J7030; J7120